=== PATIENT | male | born 1960 | race Caucasian/White ===

== ENCOUNTER 2017-09-12 17:45 | Emergency (ER) | payer OTHER ==
[~2017-09-12] VITALS: Ht 170.2 cm; Wt 65.9 kg
[2017-09-12 17:55] VITALS: BP 149/91; PULSE 82; RESP 20; TEMP 98.2; O2SAT 100
[2017-09-12] MEDS ORDERED: DICL75TA PO (18:10)
[2017-09-12] MEDS ORDERED: BACL10TA PO (18:10)
--- NOTE | 2017-09-12 18:13 | PD ---
HPI Chief Complaint: Musculoskeletal Complaint Time Seen by Provider: 18:09 Travel History International Travel<30 days: No Contact w/Intl Traveler<30days: No Traveled to known affect area: No History of Present Illness HPI 57-year-old male presents for evaluation of medial right thigh pain. 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 Symptoms gradually worsened throughout the day which prompted evaluation. He reports a aching pain in the medial right thigh which is worse when walking or moving. He denies trauma. He denies numbness or tingling. He has no other complaints. PENDING SALE TO [facility] Social History Alcohol Use: Yes Tobacco Use: Yes Allergies-Medications (Allergen,Severity, Reaction): Coded Allergies: No Known Allergies (Verified Allergy, Unknown, 09/12/17) Reported Meds & Prescriptions Reported Meds & Active Scripts Active Baclofen 10 Mg Tab 10 Mg PO Q8HR [address] (Diclofenac Sodium) 75 Mg Tabdr 75 Mg PO BID 14 Days Review of Systems Musculoskeletal: Positive: Pain Skin: Positive Other (Denies rash, bruising, soft tissue swelling) Neurologic: No: Paresthesia Physical Exam Narrative GENERAL: Well-developed well-nourished male in no acute distress SKIN: Warm and dry. No bruising or soft tissue swelling CARDIOVASCULAR: Regular rate and rhythm. No murmur appreciated. RESPIRATORY: No accessory muscle use. Clear to auscultation. Breath sounds equal bilaterally. Extremities: There is tenderness to palpation to the medial right thigh musculature. There is no tenderness to palpation of the posterior right thigh where the anterior right thigh. There is no tenderness to palpation of the right hip, the right knee, right calf, right foot, the right ankle. There is no edema. Distal pulses and C station are preserved. The patient maintains full range of motion lower extremities but he has pain with range of motion activities of the right thigh. Data Data Last Documented VS Vital Signs Date Time Temp Pulse Resp B/P (MAP) Pulse Ox O2 Delivery O2 Flow Rate FiO2 09/12/17 17:55 98.2 82 20 149/91 (110) 100 Orders Orders Ketorolac Inj (Toradol Inj) (09/12/17 18:15) Orphenadrine Inj (Norflex Inj) (09/12/17 18:15) Ed Discharge Order (09/12/17 18:09) MDM Medical Decision Making Medical Screen Exam Complete: Yes Emergency Medical Condition: Yes Medical Record Reviewed: Yes Differential Diagnosis Right thigh strain, tear, avulsion fracture, arterial occlusion Narrative Course Examination and history are consistent with strain to the right thigh musculature. The patient will be treated with short course of NSAIDs and muscle relaxants, crutches. Recommended recheck in 2 weeks with primary care physician. Diagnosis Primary Impression: Muscle strain of right thigh Additional Instructions: Crutches as needed. Medication as needed. Do not drive or drink alcohol and taking diclofenac. Avoid strenuous activity or heavy lifting. Follow-up with primary care physician in 2 weeks. Return for any emergent medical conditions. Med/Other Pt SpecificInfo: Prescription(s) given Scripts Baclofen (Baclofen) 10 Mg Tab 10 MG PO Q8HR for 14 Days, TAB 0 Refills Prov: Stanislaw Medrano MD 09/12/[address] (Diclofenac Sodium DR) 75 Mg Tabdr 75 MG PO BID for 14 Days, #28 TAB 0 Refills Prov: Stanislaw Medrano MD 09/12/17 Disposition: 01 DISCHARGE HOME Condition: Stable Mauricio Madrid Sep 12, 2017 18:13
[2017-09-12] MEDS ORDERED: KETOROLAC TROMETHAMINE 60 MG/2 ML (IM) VIAL IM ONE (18:15)
[2017-09-12] MEDS ORDERED: ORPHENADRINE INJ 60 MG/2 ML AMP IM ONE (18:15)
== END 2017-09-12 21:10 | disposition home or self-care (01) ==
LOC: NEPK 17:45
DX: S76.911A Strain of unspecified muscles, fascia and tendons at thigh level, right thigh, initial encounter (principal); X50.9XXA Other and unspecified overexertion or strenuous movements or postures, initial encounter; Y93.89 Activity, other specified; Y99.0 Civilian activity done for income or pay
CPT/HCPCS: 96372; 99283; E0113; J1885; J2360

== ENCOUNTER 2018-04-21 13:01 | Observation (INO) ==
--- NOTE | 2018-04-21 14:04 | ED ---
HPI General Chief complaint: Skin/Abscess/Foreign Body Stated complaint: bleeding rt leg Time Seen by Provider: 04/21/18 13:27 Source: patient Mode of arrival: ambulatory Limitations: no limitations History of Present Illness HPI narrative: Patient is a 58-year-old male who presents to the emergency room for evaluation of right thigh wound. Patient reports that on April 07, he had right sided hip surgery by Dr. Joyce at [facility] in [place]. Reports that there was fracture to the right hip and there was infection - he was placed in a rehab facility and was put on IV naficillin via his PICC line. Reports that he was discharged from the rehab facility on Tuesday and was discharged with an abdominal binder. Reports that this morning, this abdominal binder was "bothering him" and was digging into his basilio. He took off the abdominal binder and a little later, saw blood going down his compression stockings. He called his correctional case records supervisor who told him to come to the ER for evaluation. Patient reports that other than this episode, the hip wound has stopped leaking and he has no complaints. Denies any fever/chills. Denies n/v. Denies constipation/diarrhea. He does have an upcoming appointment with his surgeon in 2 weeks Related Data Home Medications Medication Instructions Recorded Confirmed ascorbic acid (vitamin C) [Vitamin 500 mg PO DAILY 04/21/18 04/21/18 C] cholecalciferol (vitamin D3) 1,000 unit PO DAILY 04/21/18 04/21/18 [Vitamin D3] enoxaparin [Lovenox] 30 mg SUBCUT Q12H 04/21/18 04/21/18 ferrous sulfate [iron] 325 mg PO DAILY 04/21/18 04/21/18 hydrocodone-acetaminophen 1 tab PO Q6H 04/21/18 04/21/18 meloxicam 15 mg PO DAILY 04/21/18 04/21/18 multivitamin 1 tab PO DAILY 04/21/18 04/21/18 nafcillin 500 mg IM Q4H 04/21/18 04/21/18 polyethylene glycol 3350 [Miralax] 17 g PO BID 04/21/18 04/21/18 tramadol 50 mg PO Q6H PRN 04/21/18 04/21/18 Allergies Allergy/AdvReac Type Severity Reaction Status Date / Time No Known Allergies Allergy Verified 02/11/18 23:27 Review of Systems ROS: all other systems reviewed are negative [facility] Medical History Medical History Finger amputation, no complication (Acute) Patient denies medical problems (Acute) Surgical History Surgical History Status post hip surgery (Acute) Social History Social History Substance History: No History of Abuse Second Hand Smoke Exposure: Yes Smoking Status: Current every day smoker Tobacco Type: Cigarettes How Often Do You Have a Drink Containing Alcohol: Monthly or less Recent Travel in [facility] within the Last 8 Weeks: No Recent Out of Country Travel within the Last 8 Weeks: No Immunization History Tetanus Immunization: Unsure Exam Narrative Exam Narrative: GENERAL: NAD SKIN: Focused skin assessment warm/dry. HEAD: Atraumatic. Normocephalic. EYES: Pupils equal and round. No scleral icterus. No injection or drainage. ENT: No nasal bleeding or discharge. Mucous membranes pink and moist. NECK: Trachea midline. No JVD. CARDIOVASCULAR: Regular rate and rhythm. No murmur appreciated. RESPIRATORY: No accessory muscle use. Clear to auscultation. Breath sounds equal bilaterally. GASTROINTESTINAL: Abdomen soft, non-tender, nondistended. Hepatic and splenic margins not palpable. MUSCULOSKELETAL: No obvious deformities. No clubbing. No cyanosis. No edema. Patient with right hip with incisions which are clean/dry/intact - no drainage - there was a dressing removed - there was serosanguinous drainage to the dressing, there is no signs of infections NEUROLOGICAL: Awake and alert. No obvious cranial nerve deficits. Motor grossly within normal limits. Normal speech. PSYCHIATRIC: Appropriate mood and affect; insight and judgment normal. Course Reevaluation(s) Reevaluation #1: Case reviewed with Dr. Joyce's tourist information assistant - Dr. Joyce is currently in the OR - will send operative report and have Dr. Joyce call back to discuss case. Time: 16:29 Initial Documented Vital Signs Temperature 99.1 F 04/21/18 13:10 Pulse Rate 90 04/21/18 13:10 Respiratory Rate 20 04/21/18 13:10 Blood Pressure 152/95 H 04/21/18 13:10 Pulse Oximetry 100 04/21/18 13:10 Last Documented Vital Signs Temperature 99.1 F 04/21/18 13:10 Pulse Rate 77 04/21/18 15:15 Respiratory Rate 20 04/21/18 15:15 Blood Pressure 136/81 04/21/18 15:15 Pulse Oximetry 100 04/21/18 15:15 Critical Care Time Critical Care Time: Yes Total Critical Care Time: 30 Attestation: Aggregate critical care time was 30 minutes. Time to perform other separately billable procedures was not included in the critical care time. My time did not include minutes spent treating any other patients simultaneously or on activities that did not directly contribute to the patient's treatment. The services I provided to this patient were to treat and/or prevent clinically significant deterioration that could result in: , decompensation, deterioration I provided critical care services requiring my management, as noted below: Chart data review, documentation time, medication orders and management, vital sign assessments/reviewing monitor data, ordering and reviewing lab tests, ordering and interpreting/reviewing x-rays and diagnostic studies, care of the patient and discussion of the patient with the admitting physicians. Medical Decision Making MDM Narrative Medical decision making narrative: During the course of the patients emergency department visit, the patients history, examination, and differential diagnosis were reviewed with the patient. The patient was placed on a cardiac technologist with oximetry and frequent blood pressure monitoring. The patient had an IV access obtained and blood work sent for analysis. CT of the hip shows a second subcutaneous collection measuring 5.8 x 2.8 x 8.1 cm in size with communication to the incision. It is unsure whether this is cement versus contrast versus abscess versus seroma versus hematoma. I did review the case with Dr. Monaco who read the CT A call was made to Dr. Joyce, patient's surgeon to review case and to review the operative report. At 4:31 PM, I received a call back from Dr. Joyce's tourist information assistant, he is in the operating room right now, will call back once he is done 5PM: I talked to Dr. Tom - patient was packed with cement - this fluid collection could be a seroma vs a hematoma. His hgb has always been under [address] Tom recommends that our IR team aspirate the fluid collection to see exactly what it is. He thinks that this is most likely a seroma. I discussed sending him back to [facility] for further workup - Dr. Tom will be away for a week and will not be able to see him so he recommends that he stays at [facility]. Ultimately, he had no plans of bringing patient back to the OR. He will eventually need a hip fusion but that will be for later after his hip infection has resolved. OPERATIVE NOTE was received - patient with antibiotic cement prepared with 3 gram of vanco and 3.6 gm of tobramycin Call made to [facility] for admission case reviewed with Dr. Nieves who accepts pt to service for observation Medical Screen Exam Complete: Yes Emergency Medical Condition: Yes Differential Diagnosis Differential Diagnosis: post op drainage, seroma, abscess Medical Records Medical records reviewed: Yes I reviewed the patient's medical records. Lab Data Lab results reviewed: Yes I reviewed the patient's lab results. Result diagrams: 04/21/18 14:39 04/21/18 14:39 Lab Results 04/21/18 04/21/18 04/21/18 Range/Units 14:39 14:39 14:39 CBC w Diff Auto diff final WBC 10.7 (4.0-11.0) th/mm3 RBC 2.84 L (4.50-5.90) mil/mm3 Hgb 7.7 L (13.0-17.0) gm/dL Hct 24.0 L (39.0-51.0) % MCV 84.6 (80.0-100.0) fL MCH 27.2 (27.0-34.0) pg MCHC 32.1 (32.0-36.0) % RDW 21.2 H (11.6-17.2) % Plt Count 614 H (150-450) th/mm3 MPV 7.0 (7.0-11.0) fL Neut % (Auto) 72.6 H (16.0-70.0) % Lymph % (Auto) 16.2 (9.0-44.0) % Sutter % (Auto) 6.8 (0.0-8.0) % Eos % (Auto) 4.0 (0.0-4.0) % Baso % (Auto) 0.4 (0.0-2.0) % Neut # (Auto) 7.9 H (1.8-7.7) th/mm3 Lymph # (Auto) 1.7 (1.0-4.8) th/mm3 Sutter # (Auto) 0.7 (0.0-0.9) th/mm3 Eos # (Auto) 0.4 (0.0-0.4) th/mm3 Baso # (Auto) 0.0 (0.0-0.2) th/mm3 WBC Differential . Differential Comment . PT 10.7 (9.8-11.6) sec INR 1.1 Ratio APTT 27.5 (23.4-31.7) sec Sodium 143 (136-145) meq/L Potassium 3.0 L (3.5-5.1) meq/L Chloride 109 H (98-107) meq/L Carbon Dioxide 26.4 (21.0-32.0) meq/L Anion Gap 8 (5-15) meq/L BUN 9 (7-18) mg/dL Creatinine 0.98 (0.60-1.30) mg/dL Estimated GFR 79 L (>89) mL/min Random Glucose 89 (74-106) mg/dL Calcium 8.0 L (8.5-10.1) mg/dL Imaging Data Attestation: I personally reviewed and interpreted this imaging study as follows : Radiologist's impression: Hip CT 04/21/18 13:53 CONCLUSION: 1. Extensive bony changes involving the right acetabulum and femoral head consistent with patient's history of osteomyelitis and recent surgical debridement. 2. 2 cm fairly homogeneous hyperdense collection cephalad to the femoral head with interdigitating hyperdensities throughout the musculature of the right hip extending to a second subcutaneous collection measuring 5.8 x 2.8 x 8.1 cm with apparent communication to the incision. Suspect this reflects injected contrast , perhaps during patient's surgical debridement. The subcutaneous collection may reflect a subcutaneous abscess cavity, seroma or hematoma. Discharge Plan Discharge Disposition Patient Disposition: 30 Still Patient Discharge Condition Condition: Fair Discharge Details Diagnosis: Abscess of hip, right Physicians Team ED Provider: Kacey Lowe Primary Care Provider: Primary Care ConoriAngela Rxs /Orders / Referrals /Forms Prescriptions: No Action multivitamin Tablet 1 tab PO DAILY RF: 0 polyethylene glycol 3350 [Miralax] 17 gram Powder In Packet 17 g PO BID RF: 0 hydrocodone-acetaminophen 5-325 mg Tablet 1 tab PO Q6H RF: 0 meloxicam 15 mg Tablet 15 mg PO DAILY RF: 0 tramadol 50 mg Tablet 50 mg PO Q6H PRN (Reason: Pain) RF: 0 ascorbic acid (vitamin C) [Vitamin C] 500 mg Tablet 500 mg PO DAILY RF: 0 ferrous sulfate [iron] 325 mg (65 mg iron) Tablet 325 mg PO DAILY RF: 0 enoxaparin [Lovenox] 30 mg/0.3 mL Syringe 30 mg SUBCUT Q12H RF: 0 cholecalciferol (vitamin D3) [Vitamin D3] 1,000 unit Tablet 1,000 unit PO DAILY RF: 0 nafcillin 2 gram Recon Soln 500 mg IM Q4H RF: 0 Status ED Status: Pending Admission
[2018-04-21 14:48] LABS: Baso % (Auto) 0.4 % (0.0-2.0); Eos # (Auto) 0.4 th/mm3 (0.0-0.4); Hemoglobin 7.7 gm/dL (13.0-17.0); Lymph # (Auto) 1.7 th/mm3 (1.0-4.8); Lymph % (Auto) 16.2 % (9.0-44.0); Mean Corpuscular HGB Conc 32.1 % (32.0-36.0); Mean Corpuscular Hemoglobin 27.2 pg (27.0-34.0); Mean Corpuscular Volume 84.6 fL (80.0-100.0); Mono # (Auto) 0.7 th/mm3 (0.0-0.9); Mono % (Auto) 6.8 % (0.0-8.0); Neut # (Auto) 7.9 th/mm3 (1.8-7.7); Neut % (Auto) 72.6 % (16.0-70.0); Platelet Count 614 th/mm3 (150-450); Red Blood Count 2.84 mil/mm3 (4.50-5.90); Red Cell Distribution Width 21.2 % (11.6-17.2); White Blood Count 10.7 th/mm3 (4.0-11.0)
--- NOTE | 2018-04-21 15:01 | CT ---
EXAM DATE: 04/21/2018 2:36 PM EST AGE/SEX: 58 years / Male INDICATIONS: Bleeding from right hip today. Evaluate for abscess. Patient had infection debridement surgery 2 weeks ago on right hip. CLINICAL DATA: This is the patient's initial encounter. Patient reports that signs and symptoms have been present for 1 day and indicates a pain score of 2/10. MEDICAL/SURGICAL HISTORY: None. None. RADIATION DOSE: 10.44 CTDI (mGy) COMPARISON: POI, MR HIP W/O CONTRAST, RIGHT, 11/08/2017. . TECHNIQUE: Multiple contiguous axial images were acquired using a multirow detector CT scanner witho ut contrast. Multiplanar reconstruction was performed in the sagittal and coronal planes. Using aut omated exposure control and adjustment of the mA and/or kV according to patient size, radiation dose was kept as low as reasonably achievable to obtain optimal diagnostic quality images. DICOM format i mage data is available electronically for review and comparison. FINDINGS: Deformity and erosive changes of the right acetabulum, may be postsurgical in etiology. There is ceph alad displacement of the right femoral head with respect to the acetabulum. Right femoral head is def ormed and demonstrates erosive changes. There is fairly uniform focal collection of high density jan uring approximately 2.0 x 2.1 cm just cephalad to the right femoral head. There is ill-defined increa sed density emanating from this region throughout the right hip soft tissues extending to a subcutane ous collection measuring approximately 5.8 x 2.8 x 8.1 cm. This collection appears to communicate thr ough a small fistulous tract to the skin incision site. Suspect this reflects injected contrast as it is too dense to represent hemorrhage and patient did not receive contrast for this exam. Visualized portions of the pelvis demonstrate moderately distended bladder. Nonspecific prostate containing coar se calcifications. Bowel loops are grossly unremarkable. CONCLUSION: 1. Extensive bony changes involving the right acetabulum and femoral head consistent with patient's history of osteomyelitis and recent surgical debridement. 2. 2 cm fairly homogeneous hyperdense collection cephalad to the femoral head with interdigitating h yperdensities throughout the musculature of the right hip extending to a second subcutaneous collecti on measuring 5.8 x 2.8 x 8.1 cm with apparent communication to the incision. Suspect this reflects in jected contrast, perhaps during patient's surgical debridement. The subcutaneous collection may refle ct a subcutaneous abscess cavity, seroma or hematoma. Electronically signed by: Tomasz Ferrell MD 04/21/2018 3:00 PM EST
[2018-04-21 15:02] LABS: Carbon Dioxide 26.4 meq/L (21.0-32.0)
[2018-04-21 15:03] LABS: Activated Partial Thrombo Time 27.5 sec (23.4-31.7); INR 1.1 Ratio; Prothrombin Time 10.7 sec (9.8-11.6)
[2018-04-21] MEDS ORDERED: Acetaminophen 325 MG Tablet PO PRN (17:12)
[2018-04-21] MEDS ORDERED: Bisacodyl 10 MG Supp RECTAL PRN (17:12)
--- NOTE | 2018-04-21 17:15 | P.HP ---
History of Present Illness Service: Hospitalist Primary Care Physician: No Primary Care Physician Chief Complaint: Right hip surgical area fluid drainage. History of Present Illness: Mr. Swenson is a 58-year-old male with a history of right hip infection status post surgical intervention in [facility] who presents to the emergency department on 04/21/2018 due to bloody fluid discharge from his surgical site. Patient has a hip brace which was bothering him and rubbing against the surgical basilio. He took it off and soon after that he had significant bloody fluid drainage. He did not have any other symptoms including fever or chills. He did not have any lightheadedness dizziness. Patient reports that his hemoglobin has been in the 7.7 range since surgery. He is going to follow-up with his surgeon in [place] in 2 weeks. ED provider discussed this with patient's surgeon who recommended that interventional radiology drains that this fluid collection that was noted on CT scan. Past medical history: Fracture related hip infection likely osteomyelitis Past surgical history: I&D of right hip joint Social history: Patient continues to smoke he smokes about a pack a day. He also drinks 2-3 drinks per week. He also smokes pot. Family history: Father with prostate cancer. Review of Systems All other systems reviewed negative except as stated in HPI PMFSH - History History Provided By: Patient - Medical History Medical History: Medical History (Last Reviewed 04/21/18 @ 14:17 by Kacey Lowe) Finger amputation, no complication Patient denies medical problems - Surgical History Surgical History: Surgical History (Last Updated 04/21/18 @ 14:17 by Kacey Lowe) Status post hip surgery - Tobacco History Second Hand Smoke Exposure: Yes Tobacco Use In Past 30 Days: Yes Smoking Status: Current every day smoker Tobacco Type: Cigarettes - Alcohol History How Often Do You Have a Drink Containing Alcohol: Monthly or less - Substance Use History Substance History: No History of Abuse - Travel History Recent Travel in the [place] Within the Last 8 Weeks: No Recent Travel Out of the Country Within the Last 8 Weeks: No - Immunization History Tetanus Immunization: Unsure Medications and Allergies Active Medications: Active Medications Acetaminophen (Tylenol) 650 mg PO Q4H PRN PRN Reason: Headache, fever, pain 1-4 Al Hydroxide/Mg Hydroxide (Milk Of Magnesia Liq) 30 ml PO Q12H PRN PRN Reason: Mild Constipation Bisacodyl (Dulcolax Supp) 10 mg RECTAL DAILY PRN PRN Reason: SEVERE CONSITIPATION Lactulose (Lactulose Liq) 30 ml PO DAILY PRN PRN Reason: SEVERE CONSITIPATION Ondansetron HCl (Zofran Inj) 4 mg IV.PUSH Q6H PRN PRN Reason: NAUSEA OR VOMITING Sennosides (Senokot) 17.2 mg PO Q12H PRN PRN Reason: Moderate Constipation Sodium Chloride (Ns Flush) 2 ml IV.FLUSH PRN PRN PRN Reason: FLUSH AFTER USING IV ACCESS Allergies Allergy/AdvReac Type Severity Reaction Status Date / Time No Known Allergies Allergy Verified 02/11/18 23:27 Home Medications Medication Instructions Recorded Confirmed Type ascorbic acid (vitamin C) [Vitamin 500 mg PO DAILY 04/21/18 04/21/18 History C] cholecalciferol (vitamin D3) 1,000 unit PO DAILY 04/21/18 04/21/18 History [Vitamin D3] enoxaparin [Lovenox] 30 mg SUBCUT Q12H 04/21/18 04/21/18 History ferrous sulfate [iron] 325 mg PO DAILY 04/21/18 04/21/18 History hydrocodone-acetaminophen 1 tab PO Q6H 04/21/18 04/21/18 History meloxicam 15 mg PO DAILY 04/21/18 04/21/18 History multivitamin 1 tab PO DAILY 04/21/18 04/21/18 History nafcillin 500 mg IM Q4H 04/21/18 04/21/18 History polyethylene glycol 3350 [Miralax] 17 g PO BID 04/21/18 04/21/18 History tramadol 50 mg PO Q6H PRN 04/21/18 04/21/18 History Exam Vital signs: Vital Signs 04/21/18 13:10 04/21/18 15:15 Temperature 99.1 F Pulse Rate 90 77 Respiratory Rate 20 20 Blood Pressure 152/95 H 136/81 Pulse Oximetry 100 100 Intake & Output 04/20/18 04/21/18 04/21/18 18:59 06:59 18:59 Weight 61.235 kg Narrative: GENERAL: This is a well-nourished, well-developed patient, in no apparent distress. SKIN: No rashes, ecchymoses or lesions. Warm and dry. HEAD: Atraumatic. Normocephalic. No temporal or scalp tenderness. EYES: Pupils equal round and reactive. No injection or drainage. ENT: Nose without bleeding, purulent drainage or septal hematoma. Airway patent. NECK: Trachea midline. No lymphadenopathy. Supple, nontender, no meningeal signs. CARDIOVASCULAR: Regular rate and rhythm without murmurs, gallops, or rubs. No JVD. RESPIRATORY: Clear to auscultation. Breath sounds equal bilaterally. No wheezes , rales, or rhonchi. GASTROINTESTINAL: Abdomen soft, non-tender, nondistended. No guarding. MUSCULOSKELETAL: Extremities without clubbing, cyanosis, or edema. Right hip surgical basilio appear to be intact and no erythema present no drainage noted. Surrounding area does have induration. NEUROLOGICAL: Awake and alert. Cranial nerves II through XII intact. No focal neurological deficits. Normal speech. Results - Labs CBC & Chem 7: 04/21/18 14:39 04/21/18 14:39 Labs: Laboratory Results - last 24 hr 04/21/18 04/21/18 04/21/18 14:39 14:39 14:39 CBC w Diff Auto diff final WBC 10.7 RBC 2.84 L Hgb 7.7 L Hct 24.0 L MCV 84.6 MCH 27.2 MCHC 32.1 RDW 21.2 H Plt Count 614 H MPV 7.0 Neut % (Auto) 72.6 H Lymph % (Auto) 16.2 [place] % (Auto) 6.8 Eos % (Auto) 4.0 Baso % (Auto) 0.4 Neut # (Auto) 7.9 H Lymph # (Auto) 1.7 [place] # (Auto) 0.7 Eos # (Auto) 0.4 Baso # (Auto) 0.0 WBC Differential . Differential Comment . PT 10.7 INR 1.1 APTT 27.5 Sodium 143 Potassium 3.0 L Chloride 109 H Carbon Dioxide 26.4 Anion Gap 8 BUN 9 Creatinine 0.98 Estimated GFR 79 L Random Glucose 89 Calcium 8.0 L - Imaging Impressions Hip CT 04/21/18 13:53 CONCLUSION: 1. Extensive bony changes involving the right acetabulum and femoral head consistent with patient's history of osteomyelitis and recent surgical debridement. 2. 2 cm fairly homogeneous hyperdense collection cephalad to the femoral head with interdigitating hyperdensities throughout the musculature of the right hip extending to a second subcutaneous collection measuring 5.8 x 2.8 x 8.1 cm with apparent communication to the incision. Suspect this reflects injected contrast , perhaps during patient's surgical debridement. The subcutaneous collection may reflect a subcutaneous abscess cavity, seroma or hematoma. Caprini VTE Risk Assessment Caprini VTE Risk Assessment: No/Low Risk (score <= 1) Caprini Risk Assessment Model: Point Value = 1 Point Value = 2 Point Value = 3 Point Value = 5 Age 41-60 Minor surgery BMI > 25 kg/m2 Swollen legs Varicose veins or History of unexplained or recurrent spontaneous Oral contraceptives or hormone replacement Sepsis (< 1 month) Serious lung disease, including pneumonia (< 1 month) Abnormal pulmonary function Acute myocardial infarction Congestive heart failure (< 1 month) History of inflammatory bowel disease Medical patient at bed rest Age 61-74 Arthroscopic surgery Major open surgery (> 45 min) Laparoscopic surgery (> 45 min) Malignancy Confined to bed (> 72 hours) Immobilizing plaster cast Central venous access Age >= 75 History of VTE Family history of VTE Factor V Leiden Prothrombin [id number] Lupus anticoagulant Anticardiolipin antibodies Elevated serum homocysteine Heparin-induced thrombocytopenia Other congenital or acquired thrombophilia Stroke (< 1 month) Elective arthroplasty Hip, pelvis, or leg fracture Acute spinal cord injury (< 1 month) Prophylaxis Regimen: Total Risk Factor Score Risk Level Prophylaxis Regimen 0-1 Low Early ambulation 2 Moderate Order ONE of the following: *Sequential Compression Device (SCD) *Heparin 5000 units SQ BID 3-4 Higher Order ONE of the following medications: *Heparin 5000 units SQ TID *Enoxaparin/Lovenox 40 mg SQ daily (WT < 150 kg, CrCl > 30 mL/min) *Enoxaparin/Lovenox 30 mg SQ daily (WT < 150 kg, CrCl > 10-29 mL/min) *Enoxaparin/Lovenox 30 mg SQ BID (WT < 150 kg, CrCl > 30 mL/min) AND/OR *Sequential Compression Device (SCD) 5 or more Highest Order ONE of the following medications: *Heparin 5000 units SQ TID (Preferred with Epidurals) *Enoxaparin/Lovenox 40 mg SQ daily (WT < 150 kg, CrCl > 30 mL/min) *Enoxaparin/Lovenox 30 mg SQ daily (WT < 150 kg, CrCl > 10-29 mL/min) *Enoxaparin/Lovenox 30 mg SQ BID (WT < 150 kg, CrCl > 30 mL/min) AND *Sequential Compression Device (SCD) Assessment and Plan - Plan Mr. Swenson is a 58-year-old male with a history of right hip fracture and infection status post I&D in [place] who presents to the emergency department at [place] due to fluid drainage from the surgical site. CT scan shows a fluid collection. Probable seroma History of right hip infection Status post I&D in [facility] Surgical basilio in the surrounding area has no erythema but has some induration. Patient's hemoglobin has been around 7.7. However, will check hemoglobin in the morning again. Continue nafcillin using patient's continuous pump. We will request IR to drain the fluid collection. However, if patient remains stable and hemoglobin is a stable as well, patient can likely go home and follow-up with his orthopedic surgeon in 2 weeks. Tobacco abuse, alcohol abuse Discussed with patient regarding his tobacco abuse and encouraged patient to quit tobacco as wound healing is inhibited by smoking. Full code. SCDs/ambulation.
[2018-04-21 19:59] LABS: Hematocrit 24.6 % (39.0-51.0); Hemoglobin 7.9 gm/dL (13.0-17.0)
[2018-04-21 20:03] VITALS: RESP 18
--- NOTE | 2018-04-22 08:05 | P.PN ---
Subjective Interval history: Follow-up for probable seroma and recent right hip surgery. Patient is currently doing well. He slept well. Denies any chest pain, shortness of breath, fever or chills. No further drainage. His hemoglobin yesterday was 7.7 and today 7.9. Physical Exam Vital signs: Vital Signs 04/21/18 13:10 04/21/18 15:15 04/21/18 17:58 Temperature 99.1 F Pulse Rate 90 77 81 Respiratory Rate 20 20 20 Blood Pressure 152/95 H 136/81 153/88 H Pulse Oximetry 100 100 04/21/18 20:00 04/22/18 00:00 Temperature 97.8 F 98.0 F Pulse Rate 76 75 Respiratory Rate 18 18 Blood Pressure 149/83 H 140/90 Pulse Oximetry 99 100 Intake & Output 04/21/18 04/22/18 04/22/18 18:59 06:59 18:59 Weight 61.235 kg 66.9 kg Other: # Voids 2 Results - Labs CBC & Chem 7: 04/21/18 19:35 04/21/18 14:39 Laboratory Results - last 24 hr 04/21/18 04/21/18 04/21/18 14:39 14:39 14:39 CBC w Diff Auto diff final WBC 10.7 RBC 2.84 L Hgb 7.7 L Hct 24.0 L MCV 84.6 MCH 27.2 MCHC 32.1 RDW 21.2 H Plt Count 614 H MPV 7.0 Neut % (Auto) 72.6 H Lymph % (Auto) 16.2 [place] % (Auto) 6.8 Eos % (Auto) 4.0 Baso % (Auto) 0.4 Neut # (Auto) 7.9 H Lymph # (Auto) 1.7 [place] # (Auto) 0.7 Eos # (Auto) 0.4 Baso # (Auto) 0.0 WBC Differential . Differential Comment . PT 10.7 INR 1.1 APTT 27.5 Sodium 143 Potassium 3.0 L Chloride 109 H Carbon Dioxide 26.4 Anion Gap 8 BUN 9 Creatinine 0.98 Estimated GFR 79 L Random Glucose 89 Calcium 8.0 L 04/21/18 19:35 CBC w Diff WBC RBC Hgb 7.9 L Hct 24.6 L MCV MCH MCHC RDW Plt Count MPV Neut % (Auto) Lymph % (Auto) [place] % (Auto) Eos % (Auto) Baso % (Auto) Neut # (Auto) Lymph # (Auto) [place] # (Auto) Eos # (Auto) Baso # (Auto) WBC Differential Differential Comment PT INR APTT Sodium Potassium Chloride Carbon Dioxide Anion Gap BUN Creatinine Estimated GFR Random Glucose Calcium - Imaging Impressions Hip CT 04/21/18 13:53 CONCLUSION: 1. Extensive bony changes involving the right acetabulum and femoral head consistent with patient's history of osteomyelitis and recent surgical debridement. 2. 2 cm fairly homogeneous hyperdense collection cephalad to the femoral head with interdigitating hyperdensities throughout the musculature of the right hip extending to a second subcutaneous collection measuring 5.8 x 2.8 x 8.1 cm with apparent communication to the incision. Suspect this reflects injected contrast , perhaps during patient's surgical debridement. The subcutaneous collection may reflect a subcutaneous abscess cavity, seroma or hematoma. Assessment and Plan - Plan Mr. Swenson is a 58-year-old male with a history of right hip fracture and infection status post I&D in [place] who presents to the emergency department at [place] due to fluid drainage from the surgical site. CT scan shows a fluid collection. Probable seroma History of right hip infection Status post I&D in [facility] Surgical basilio in the surrounding area has no erythema but has some induration. Patient's hemoglobin has been around 7.7. Hgb is 7.9 today. Continue nafcillin using patient's continuous pump. We consulted IR. I discussed with on-call IR today. Patient's fluid collection is likely a seroma and if drained, it will re-appear. Patient does not have any systemic sign of infection. He is already on Nafcillin. I discussed with patient as well. He lives not far from the hospital. I encouraged him to come back to the hospital if he develops fever, chills or erythema/pus in the surgical area. Tobacco abuse, alcohol abuse Discussed with patient regarding his tobacco abuse and encouraged patient to quit tobacco as wound healing is inhibited by smoking. Full code. SCDs/ambulation. Discharge patient to home Condition on discharge: Improved Regular Diet as tolerated Ad Jennifer activity Rx written: No new Rx. Follow-up with primary care physician PRN, Orthopedic surgery as previously scheduled.
[2018-04-22 09:39] VITALS: BP 139/88; PULSE 80; TEMP 97.3; O2SAT 95
== END 2018-04-22 10:15 | disposition home or self-care (01) ==
LOC: PHED 13:01 → PHEDA 13:01 → PH3 18:19
PROVIDERS: ADMIT Hospitalist; ATTEND Hospitalist